=== PATIENT | male | born 1950 | race Caucasian/White ===

== ENCOUNTER 2023-04-19 17:03 | Emergency (ER) | payer MEDICARE, BC ==
[~2023-04-19] VITALS: Ht 175.3 cm; Wt 122.5 kg
[2023-04-19 17:15] VITALS: BP 138/78
== END 2023-04-19 18:21 | disposition home or self-care (01) ==
LOC: ER 17:03
DX: M25.561 Pain in right knee (principal); I10 Essential (primary) hypertension; E11.9 Type 2 diabetes mellitus without complications; E78.00 Pure hypercholesterolemia, unspecified; Z85.46 Personal history of malignant neoplasm of prostate; Z88.8 Allergy status to other drugs, medicaments and biological substances; Z88.5 Allergy status to narcotic agent
CPT/HCPCS: 99283

== ENCOUNTER 2023-05-19 09:47 | Day surgery (SDC) | payer MEDICARE, BC ==
[~2023-05-19] VITALS: Ht 175.3 cm; Wt 124.9 kg
[2023-05-19] MEDS ORDERED: LOSARTAN POTASS25 M2 PO (10:08)
[2023-05-19] MEDS ORDERED: METFORMIN HYDROCHLOR (10:09)
[2023-05-19] MEDS ORDERED: JARDIANCE10 MG PO (10:09)
[2023-05-19] MEDS ORDERED: MONT10T PO (10:10)
[2023-05-19] MEDS ORDERED: ATOR10 PO (10:11)
[2023-05-19 11:40] VITALS: BP 130/84
== END 2023-05-19 11:56 | disposition home or self-care (01) ==
LOC: ORSCSDS 09:47
PROVIDERS: Student in an Organized Health Care Education/Training Program
PROC: 08RJ30Z Replacement of Right Lens with Intraocular Telescope, Percutaneous Approach (ICD-10-PCS; principal; 2023-05-19 11:00)
DX: E11.36 Type 2 diabetes mellitus with diabetic cataract (principal); H25.13 Age-related nuclear cataract, bilateral; H52.201 Unspecified astigmatism, right eye; I10 Essential (primary) hypertension; Z79.84 Long term (current) use of oral hypoglycemic drugs; Z79.899 Other long term (current) drug therapy
CPT/HCPCS: 82947; J2250; J7040; V2632

== ENCOUNTER 2023-06-02 08:47 | Day surgery (SDC) | payer MEDICARE, BC ==
[~2023-06-02] VITALS: Ht 175.3 cm; Wt 125.0 kg
[~2023-06-02 08:47] MED LIST: ATOR10 PO; JARDIANCE10 MG PO; LOSARTAN POTASS25 M2 PO; METFORMIN HYDROCHLOR; MONT10T PO
[2023-06-02] MEDS ORDERED: AMLO5 PO (08:57)
--- NOTE | 2023-06-02 09:03 | NUR ---
06/02/23 0903 Nyla Natarajan 1 DROP OF TETRACAINE ADMINISTERED TO THE L EYE AT 0859, PLEDGET PLACED AT 0900 BY [facility].TRUDI ANGLE.
[2023-06-02 10:04] VITALS: BP 136/75
--- NOTE | 2023-06-02 10:27 | NUR ---
06/02/23 1027 Papo Smith IV REMOVED INTACT. SITE WNL.
== END 2023-06-02 10:23 | disposition home or self-care (01) ==
LOC: ORSCSDS 08:47
PROVIDERS: Student in an Organized Health Care Education/Training Program
PROC: 08RK3JZ Replacement of Left Lens with Synthetic Substitute, Percutaneous Approach (ICD-10-PCS; principal; 2023-06-02 10:00)
DX: E11.36 Type 2 diabetes mellitus with diabetic cataract (principal); Z96.1 Presence of intraocular lens; I10 Essential (primary) hypertension; G47.33 Obstructive sleep apnea (adult) (pediatric); E66.9 Obesity, unspecified; Z68.41 Body mass index [BMI] 40.0-44.9, adult; Z79.84 Long term (current) use of oral hypoglycemic drugs; Z79.899 Other long term (current) drug therapy
CPT/HCPCS: 82947; J2250; J3010; J7040; V2632

== ENCOUNTER 2025-06-27 21:30 | Emergency (ER) | payer OTHER ==
[~2025-06-27] VITALS: Ht 175.3 cm; Wt 117.9 kg
[~2025-06-27 21:30] MED LIST changes: +AMLO5 PO
[2025-06-27 21:36] VITALS: BP 162/62
== END 2025-06-27 23:58 | disposition home or self-care (01) ==
LOC: ER 21:30
DX: S86.112A Strain of other muscle(s) and tendon(s) of posterior muscle group at lower leg level, left leg, initial encounter (principal); X58.XXXA Exposure to other specified factors, initial encounter; I10 Essential (primary) hypertension; E11.9 Type 2 diabetes mellitus without complications; Z88.5 Allergy status to narcotic agent; Z88.8 Allergy status to other drugs, medicaments and biological substances; Z79.84 Long term (current) use of oral hypoglycemic drugs; Z79.899 Other long term (current) drug therapy
CPT/HCPCS: 93971; 99283-25